=== PATIENT | male | born 1970 | race Caucasian/White ===

== ENCOUNTER 2017-04-27 01:30 | Inpatient (IN) | payer MEDICAID ==
[~2017-04-27] VITALS: Ht 172.7 cm; Wt 92.0 kg
[~2017-04-27 01:30] MED LIST: FAMO-18 PO
--- NOTE | 2017-04-27 03:34 | ERA ---
ER Documentation Chief Complaint Date/Time DATE: 04/27/17 TIME: 03:34 Chief Complaint AP x4 days. Antacids taken no relief HPI The patient is 46-year-old male, presenting to the ER because of diffuse abdominal pain intermittently for the last 4 days, constipation. he took over- the-counter antacids with no relief. He denies similar symptoms previously, denies fever, chills, neck pain, chest pain, dysuria, diarrhea, constipation. He does not smoke nor drink Past medical history: Hepatic steatosis ROS All systems reviewed and are negative except as per history of present illness. Medications Home Meds Reported Medications Ibuprofen* (Ibuprofen*) 200 Mg Capsule, 200 MG PO Q6, CAP 04/27/17 Magaldrate/Simethicone* (Mag-Al Plus Suspension*) 30 Ml Oral.susp, 30 ML PO Q6H Y for GASTROINTESTINAL UPSET, ML 04/27/17 Discontinued Scripts Famotidine* (Pepcid*) 20 Mg Tablet, 20 MG PO BID, #20 TAB Prov:JESSICA DUBOIS PA-C 04/21/16 Allergies Allergies: Coded Allergies: No Known Drug Allergy (Verified Allergy, Mild, 04/19/10) PMhx/Soc History of Surgery: No Anesthesia Reaction: No Hx Neurological Disorder: No Hx Respiratory Disorders: No Hx Cardiac Disorders: No Hx Psychiatric Problems: No Hx Miscellaneous Medical Probl: Yes Hx Alcohol Use: No Hx Substance Use: No Hx Tobacco Use: Yes (10 CIGARETTE DAILY) Physical Exam Vitals Vital Signs Date Time Temp Pulse Resp B/P Pulse Ox O2 Delivery O2 Flow Rate FiO2 04/27/17 03:39 98.0 76 17 137/71 98 Room Air 04/27/17 01:42 98.1 75 20 131/83 98 Physical Exam Const: No acute distress. Head: Atraumatic. Eyes: Normal Conjunctiva. ENT: Normal External Ears, Nose and Mouth. Neck: Full range of motion. No meningismus. Resp: Clear to auscultation bilaterally. Cardio: Regular rate and rhythm. Abd: Soft, non distended, normal bowel sounds, diffuse abdominal tenderness, more tender in the left upper quadrant, no CVA tenderness Skin: No petechiae or rashes. Back: No midline or flank tenderness. Ext: No cyanosis, or edema. Neur: Awake and alert. No focal deficit Psych: Normal Mood and Affect. Result Diagram: 04/27/17 0332 04/27/17 0332 Results 24 hrs Laboratory Tests Test 04/27/17 03:32 White Blood Count 8.310^3/ul Red Blood Count 5.0510^6/ul Hemoglobin 14.5g/dl Hematocrit 42.1% Mean Corpuscular Volume 83.4fl Mean Corpuscular Hemoglobin 28.7pg Mean Corpuscular Hemoglobin Concent 34.4g/dl Red Cell Distribution Width 13.5% Platelet Count 37572^3/UL Mean Platelet Volume 11.1fl Neutrophils % 60.8% Lymphocytes % 30.6% Monocytes % 5.8% Eosinophils % 2.1% Basophils % 0.5% Nucleated Red Blood Cells % 0.0/100WBC Neutrophils # 5.010^3/ul Lymphocytes # 2.510^3/ul Monocytes # 0.510^3/ul Eosinophils # 0.210^3/ul Basophils # 0.010^3/ul Nucleated Red Blood Cells # 0.010^3/ul Sodium Level 143mmol/L Potassium Level 3.9mmol/L Chloride Level 104mmol/L Carbon Dioxide Level 28mmol/L Anion Gap 15 Blood Urea Nitrogen 25mg/dl Creatinine 0.75mg/dl Glucose Level 109mg/dl Calcium Level 9.4mg/dl Total Bilirubin 0.4mg/dl Direct Bilirubin 0.00mg/dl Indirect Bilirubin 0.4mg/dl Aspartate Amino Transf (AST/SGOT) 27IU/L Alanine Aminotransferase (ALT/SGPT) 53IU/L Alkaline Phosphatase 102IU/L Total Protein 7.6g/dl Albumin 4.7g/dl Globulin 2.90g/dl Albumin/Globulin Ratio 1.62 Lipase 2459U/L Current Medications Medications (Trade) Dose Ordered Sig/Kourtney Route PRN Reason Start Time Stop Time Status Last Admin Dose Admin Ketorolac Tromethamine (Toradol) 30 mg ONCE STAT IV 04/27/17 03:48 04/27/17 03:50 DC 04/27/17 04:00 Bisacodyl (Dulcolax Supp) 10 mg ONCE ONCE NC 04/27/17 04:00 04/27/17 04:01 DC 04/27/17 04:00 [facility]/[address] [place] [address] Radiology Main Line: [phone] DIAGNOSTIC IMAGING REPORT Patient: ANNITA NINO : 1970 Age: 46 Sex: M MR #: [id number] DOS: 04/27/17 0348 Ordering MD: ALIZE JC MD Location: E/R Room/Bed: PROCEDURE: CT ABDOMEN/PELVIS WITHOUT CONTRAST CLINICAL INDICATION: 46-year-old male with abdominal pain. TECHNIQUE: The study was performed utilizing a [employer] 64-slice CT scanner. Direct axial sections were obtained through the abdomen and pelvis without the use of intravenous contrast material. Sagittal and coronal reformations were obtained. One or more of the following dose reduction techniques were utilized: automated exposure control, adjustment of the mA and/ or kV according to patient's size or use of iterative reconstruction technique. The images were reviewed on a PACS workstation. CTD/vol = 16.5 mGy; Total Exam DLP = 1160.1 mGy-cm. COMPARISON: Right upper quadrant ultrasound April 21, 2016. FINDINGS: The lung bases are unremarkable. There is no evidence for significant pleural effusion. The liver has a normal size and contour without focal areas of abnormal density. No intrahepatic nor extrahepatic biliary ductal dilatation is seen. The gallbladder demonstrates no wall thickening nor pericholecystic fluid. No biliary stones are evident. There is a small nonspecific punctate calcification within the distal body of the pancreas. The spleen is identified and has a normal size without abnormal density. The adrenal glands are unremarkable. The kidneys are without abnormal density. No hydroureteronephrosis nor nephroureterolithiasis is evident. The urinary bladder contains urine. There is mild retained stool identified throughout the colon without evidence for bowel obstruction. The appendix is visualized and is without abnormal thickening or surrounding inflammatory reaction. There is no significant free fluid. The aortoiliac vessels are mildly calcified but without aneurysmal dilatation. The osseous structures are intact. IMPRESSION: 1. No CT evidence for obstructive uropathy or renal calculi. 2. Mild retained stool without obstruction. 3. No CT evidence for appendicitis. 4. Vascular calcifications. .Frank William MD, MD Date Time Electronically viewed and signed by .Frank William MD, MD on 04/27/2017 04:54 .M/ CC: ALIZE JC MD [place] [address] Radiology Main Line: [phone] DIAGNOSTIC IMAGING REPORT Patient: ANNITA NINO : 1970 Age: 46 Sex: M MR #: [id number] DOS: 04/27/17 0440 Ordering MD: ALIZE JC MD Location: E/R Room/Bed: PROCEDURE: ULTRASOUND LIMITED ABDOMEN CLINICAL INDICATION: 46-year-old male with abdominal pain. TECHNIQUE: Multiple sonographic of the right upper quadrant of the abdomen were obtained. The images were reviewed on a PACS workstation. COMPARISON: CT abdomen/pelvis May 02, 2017. FINDINGS: The pancreas is not well visualized secondary to overlying bowel gas. The liver displays normal echogenicity. The liver measures 16.8 cm in length. No evidence of intrahepatic biliary ductal dilatation is seen. The portal and hepatic veins are unremarkable. The gallbladder is without evidence for shadowing stones or significant wall thickening. No pericholecystic fluid is seen. The common bile duct measures 4.5 mm and is not dilated. The right kidney displays normal echogenicity. The right kidney measures 11.5 cm in maximal length. No caliectasis or hydronephrosis is seen. No free fluid is seen. IMPRESSION: Unremarkable right upper quadrant abdominal ultrasound. .Frank William MD, MD Date Time Electronically viewed and signed by .Frank William MD, MD on 04/27/2017 05:09 .M/ CC: ALIZE JC MD EKG: Read by emergency physician Rate/Rhythm: Normal Sinus Rhythm 76 beats/min QRS, ST, T-waves: No ST elevation, no T inversion Impression: EKG MEDICAL MAKING DECISION: The patient is a 46-year-old male, presenting with acute pancreatitis. He was treated with Toradol 30 mg IV for pain, Dulcolax suppository for constipation with good response The differential diagnoses considered include but are not limited to cholelithiasis, cholecystitis, cystitis, pancreatitis, hepatitis, gastritis, peptic ulcer disease, gastric ulcer, appendicitis, diverticulitis, cholangitis, choledocholithiasis, partial small bowel obstruction. Departure Diagnosis: Primary Impression: Acute pancreatitis Condition: Stable Comments I discussed the findings with the patient. I discussed the patient with the on- call hospitalist Dr. Telles who was made aware of the lab, the treatment, the patient condition. The patient is admitted to [facility] at 5:10 AM The patient's blood pressure was elevated (>120/80) but appears stable without evidence of hypertension emergency or urgency. The patient was counseled about the risks of hypertension and urged to pursue outpatient monitoring and therapy within a week with their primary care physician. ALIZE JC MD Apr 27, 2017 03:34
[2017-04-27] MEDS ORDERED: UDMYL PO (03:40)
[2017-04-27] MEDS ORDERED: IBUP200C PO (03:41)
[2017-04-27] MEDS ORDERED: KETOROLAC 30 MG INJ IV STA (03:48)
[2017-04-27] MEDS ORDERED: BISACODYL 10 MG SUPP PR ONE (04:00)
[2017-04-27 04:11] LABS: ADD SCAN DIFF NO
[2017-04-27 04:13] LABS: BASOPHILS % 0.5 % (0.0-2.0); EOSINOPHILS # 0.2 10^3/ul (0.0-0.5); EOSINOPHILS % 2.1 % (0.0-7.0); HEMATOCRIT 42.1 % (42.0-52.0); HEMOGLOBIN 14.5 g/dl (14.0-18.0); LYMPHOCYTES # 2.5 10^3/ul (0.8-2.9); LYMPHOCYTES % 30.6 % (15.0-51.0); MEAN CORPUSCULAR HEMOGLOBIN 28.7 pg (29.0-33.0); MEAN CORPUSCULAR HGB CONC 34.4 g/dl (32.0-37.0); MEAN CORPUSCULAR VOLUME 83.4 fl (82.0-101.0); MEAN PLATELET VOLUME 11.1 fl (7.4-10.4); MONOCYTE # 0.5 10^3/ul (0.3-0.9); MONOCYTES % 5.8 % (0.0-11.0); NEUTROPHILS % 60.8 % (39.0-77.0); PLATELET COUNT 258 10^3/UL (140-415); RED BLOOD COUNT 5.05 10^6/ul (4.70-6.10); RED CELL DISTRIBUTION WIDTH 13.5 % (11.5-14.5); WHITE BLOOD COUNT 8.3 10^3/ul (4.8-10.8)
[2017-04-27 04:23] LABS: ALBUMIN 4.7 g/dl (3.3-4.9); ALBUMIN/GLOBULIN RATIO 1.62; BILIRUBIN,INDIRECT 0.4 mg/dl (0-1.1); BILIRUBIN,TOTAL 0.4 mg/dl (0.2-1.3); CALCIUM 9.4 mg/dl (8.4-10.2); CREATININE 0.75 mg/dl (0.61-1.24); POTASSIUM 3.9 mmol/L (3.5-5.1); TOTAL PROTEIN 7.6 g/dl (6.1-8.1)
--- NOTE | 2017-04-27 04:55 | RADRPT ---
PROCEDURE: CT ABDOMEN/PELVIS WITHOUT CONTRAST CLINICAL INDICATION: 46-year-old male with abdominal pain. TECHNIQUE: The study was performed utilizing a [employer] VCT 64-slice CT scanner. Direct axia l sections were obtained through the abdomen and pelvis without the use of intravenous contrast mate rial. Sagittal and coronal reformations were obtained. One or more of the following dose reduction t echniques were utilized: automated exposure control, adjustment of the mA and/or kV according to pat ient's size or use of iterative reconstruction technique. The images were reviewed on a [employer]ACS workst [employer]. CTD/vol = 16.5 mGy; Total Exam DLP = 1160.1 mGy-cm. COMPARISON: Right upper quadrant ultrasound April 21, 2016. FINDINGS: The lung bases are unremarkable. There is no evidence for significant pleural effusion. The liver has a normal size and contour without focal areas of abnormal density. No intrahepatic nor extrahepa tic biliary ductal dilatation is seen. The gallbladder demonstrates no wall thickening nor perichole cystic fluid. No biliary stones are evident. There is a small nonspecific punctate calcification wit hin the distal body of the pancreas. The spleen is identified and has a normal size without abnormal density. The adrenal glands are unremarkable. The kidneys are without abnormal density. No hydroure teronephrosis nor nephroureterolithiasis is evident. The urinary bladder contains urine. There is mi ld retained stool identified throughout the colon without evidence for bowel obstruction. The appen tomy is visualized and is without abnormal thickening or surrounding inflammatory reaction. There is no significant free fluid. The aortoiliac vessels are mildly calcified but without aneurysmal dilatation. The osseous structures are intact. IMPRESSION: 1. No CT evidence for obstructive uropathy or renal calculi. 2. Mild retained stool without obstruction. 3. No CT evidence for appendicitis. 4. Vascular calcifications. .Frank William MD, MD Date Time Electronically viewed and signed by .Frank William MD, on 04/27/2017 04:54 .[place]/
--- NOTE | 2017-04-27 05:09 | RADRPT ---
PROCEDURE: ULTRASOUND LIMITED ABDOMEN CLINICAL INDICATION: 46-year-old male with abdominal pain. TECHNIQUE: Multiple sonographic of the right upper quadrant of the abdomen were obtained. The imag es were reviewed on a PACS workstation. COMPARISON: CT abdomen/pelvis May 02, 2017. FINDINGS: The pancreas is not well visualized secondary to overlying bowel gas. The liver displays normal echogenicity. The liver measures 16.8 cm in length. No evidence of intrah epatic biliary ductal dilatation is seen. The portal and hepatic veins are unremarkable. The gallbladder is without evidence for shadowing stones or significant wall thickening. No perichol ecystic fluid is seen. The common bile duct measures 4.5 mm and is not dilated. The right kidney displays normal echogenicity. The right kidney measures 11.5 cm in maximal length. No caliectasis or hydronephrosis is seen. No free fluid is seen. IMPRESSION: Unremarkable right upper quadrant abdominal ultrasound. .Frank William MD, MD Date Time Electronically viewed and signed by .Frank William MD, on 04/27/2017 05:09 .[place]/
[2017-04-27] MEDS: D5W-0.45 NACL + KCL 20 MEQ 1,000 ML IV SCH ×3 (07:12→22:03)
[2017-04-27] MEDS ORDERED: NACL 0.9% 3 ML SYG IV SCH (07:30)
[2017-04-27] MEDS ORDERED: ONDANSETRON 4 MG INJ IV PRN (07:30)
--- NOTE | 2017-04-27 07:54 | HP ---
DATE OF ADMISSION: 04/27/2017 TIME: 6:45 a.m. CHIEF COMPLAINT: Abdominal pain. HISTORY OF PRESENT ILLNESS: The patient is a 46-year-old male with no medical history. He states f or the past several days now he has been having worsening abdominal pain associated with nausea, dif ficulty eating. He states that when he eats the pain gets worse. In the ED the patient was noted to have a lipase of 2,459. He states that he has never had pancreatitis before. He denies any alcohol abuse. He states that he has not drank for many years now. The patient has no other complaints at this time. PAST MEDICAL HISTORY: Denies. PAST SURGICAL HISTORY: Denies. HOME MEDICATIONS: None. ALLERGIES: NO KNOWN DRUG ALLERGIES. FAMILY HISTORY: Denies. SOCIAL HISTORY: Denies any alcohol, tobacco, or drug abuse. REVIEW OF SYSTEMS: A 12-point review of systems was negative except for that stated in the HPI. PHYSICAL EXAMINATION: VITAL SIGNS: Temperature 98.0, pulse 76, respiratory rate 17, BP is 137/71, saturations 98% on room air. GENERAL: In no acute distress, alert and oriented. HEENT: Normocephalic, atraumatic. CHEST: Clear to auscultation. CARDIOVASCULAR: Regular rate and rhythm. ABDOMEN: Nondistended, soft. Mild tenderness to palpation. EXTREMITIES: No clubbing, cyanosis, or edema. LABORATORIES: CBC within normal limits. BNP is within normal limits except for a BUN of 25 and lip ase was also elevated at 2,459. DIAGNOSTICS: Gallbladder ultrasound was unremarkable. A right upper quadrant abdominal ultrasound a nd abdominal pelvis CT shows no CT evidence for obstructive uropathy or renal calculi. Mild retaine d stool. No evidence of appendicitis. ASSESSMENT AND PLAN: 1. Pancreatitis. Etiology is unknown at this time. The patient is not on any medications, does no t abuse any alcohol. Ultrasound of his abdomen shows gallstones. Will check a triglyceride level. Will keep the patient n.p.o. and give IV fluids. 2. Prophylaxis. SCDs. Dictated By: BETSYE SALES MD BS/NTS Conf#: [id number] DID#: [id number]
--- NOTE | 2017-04-27 16:06 | PN ---
Date/Time of Note Date/Time of Note DATE: 04/27/17 TIME: 16:05 Assessment/Plan VTE Prophylaxis VTE Prophylaxis Intervention: SCD's Assessment/Plan Chief Complaint/Hosp Course Assessment and plan 1. Pancreatitis. Etiology unknown at this time. Follow-up on the blood panel. Less abdominal pain at this time. Follow-up on likely stable. Advance diet as tolerated. Continue on IV hydration. Provide with analgesics as needed. DVT prophylaxis: SCDs Disposition plan: We will advance that as tolerated. Anticipate discharge within the next 24 hours if medically stable Discussed plan of care with Dr. Turner Problems: Subjective 24 Hr Interval Summary Free Text/Dictation Reports his abdominal pain at this time. 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, nl mental status, nl speech Results Result Diagram: 04/27/17 0332 04/27/17 0332 Results 24 hrs Laboratory Tests Test 04/27/17 03:32 White Blood Count 8.3 Red Blood Count 5.05 Hemoglobin 14.5 Hematocrit 42.1 Mean Corpuscular Volume 83.4 Mean Corpuscular Hemoglobin 28.7 L Mean Corpuscular Hemoglobin Concent 34.4 Red Cell Distribution Width 13.5 Platelet Count 258 Mean Platelet Volume 11.1 #H Neutrophils % 60.8 Lymphocytes % 30.6 Monocytes % 5.8 Eosinophils % 2.1 Basophils % 0.5 Nucleated Red Blood Cells % 0.0 Neutrophils # 5.0 Lymphocytes # 2.5 Monocytes # 0.5 Eosinophils # 0.2 Basophils # 0.0 Nucleated Red Blood Cells # 0.0 Sodium Level 143 Potassium Level 3.9 Chloride Level 104 Carbon Dioxide Level 28 Anion Gap 15 Blood Urea Nitrogen 25 H Creatinine 0.75 Glucose Level 109 Calcium Level 9.4 Total Bilirubin 0.4 Direct Bilirubin 0.00 Indirect Bilirubin 0.4 Aspartate Amino Transf (AST/SGOT) 27 Alanine Aminotransferase (ALT/SGPT) 53 Alkaline Phosphatase 102 Total Protein 7.6 Albumin 4.7 Globulin 2.90 Albumin/Globulin Ratio 1.62 Lipase 2459 H Medications Medications Current Medications Potassium Chloride/Dextrose/ Sod Cl (D5-1/2ns + KCl 20 Meq) 1,000 ml @ 100 mls/ hr Q10H IV Last administered on 04/27/17 07:12; Admin Dose 100 MLS/HR; Start 04/27/17 at 07:12 Ondansetron HCl (Zofran Inj) 4 mg Q6H PRN IV NAUSEA AND/OR VOMITING; Start at 07:30 Acetaminophen (Tylenol Tab) 650 mg Q6H PRN PO PAIN LEVEL 1-3 OR FEVER; Start at 07:30 Acetaminophen/ Hydrocodone Bitart ([place] (5/325)) 1 tab Q6H PRN PO MODERATE PAIN LEVEL 4-6; Start 04/27/17 at 07:30 Morphine Sulfate (morphine) 2 mg Q4H PRN IV SEVERE PAIN LEVEL 7-10; Start 04/27 at 07:30 JOSE J CARRERA Apr 27, 2017 16:06
[2017-04-27 16:31] VITALS: TEMP 97.5
[2017-04-27] MEDS: morphine 2 MG INJ IV PRN (16:41)
[2017-04-27 19:01] VITALS: Ht 172.7 cm; Wt 92.0 kg
[2017-04-27] MEDS: ACETAMINOPHEN 325 MG TAB PO PRN (19:45)
[2017-04-27 20:23] VITALS: BP 115/77; RESP 16
[2017-04-28 05:36] LABS: ADD SCAN DIFF NO
[2017-04-28 05:47] LABS: BASOPHILS % 0.5 % (0.0-2.0); EOSINOPHILS # 0.2 10^3/ul (0.0-0.5); EOSINOPHILS % 2.5 % (0.0-7.0); HEMATOCRIT 40.7 % (42.0-52.0); HEMOGLOBIN 13.8 g/dl (14.0-18.0); LYMPHOCYTES % 26.4 % (15.0-51.0); MEAN CORPUSCULAR HEMOGLOBIN 28.5 pg (29.0-33.0); MEAN CORPUSCULAR HGB CONC 33.9 g/dl (32.0-37.0); MEAN CORPUSCULAR VOLUME 83.9 fl (82.0-101.0); MEAN PLATELET VOLUME 10.9 fl (7.4-10.4); MONOCYTE # 0.5 10^3/ul (0.3-0.9); MONOCYTES % 6.5 % (0.0-11.0); NEUTROPHIL # 4.9 10^3/ul (1.6-7.5); NEUTROPHILS % 63.8 % (39.0-77.0); PLATELET COUNT 262 10^3/UL (140-415); RED BLOOD COUNT 4.85 10^6/ul (4.70-6.10); RED CELL DISTRIBUTION WIDTH 13.5 % (11.5-14.5); WHITE BLOOD COUNT 7.7 10^3/ul (4.8-10.8)
[2017-04-28 06:04] LABS: ALBUMIN 4.3 g/dl (3.3-4.9); ALBUMIN/GLOBULIN RATIO 1.43; BILIRUBIN,INDIRECT 0.4 mg/dl (0-1.1); BILIRUBIN,TOTAL 0.4 mg/dl (0.2-1.3); CALCIUM 9.3 mg/dl (8.4-10.2); CHOL/HDL RATIO 7.9 RATIO; CREATININE 0.76 mg/dl (0.61-1.24); MAGNESIUM 1.8 mg/dl (1.7-2.5); PHOSPHORUS 3.9 mg/dl (2.5-4.9); POTASSIUM 4.1 mmol/L (3.5-5.1); TOTAL PROTEIN 7.3 g/dl (6.1-8.1)
[2017-04-28 06:19] LABS: T3 UPTAKE 36.9 % (23.5-40.5)
[2017-04-28] MEDS: D5W-0.45 NACL + KCL 20 MEQ 1,000 ML IV SCH ×3 (08:24→19:50)
[2017-04-28 09:12] VITALS: BP 128/77; RESP 18
[2017-04-28] MEDS: HYDROCODONE/APAP (5/325) TAB PO PRN ×2 (09:34→21:55)
[2017-04-28] MEDS: ACETAMINOPHEN 325 MG TAB PO PRN (15:16)
--- NOTE | 2017-04-28 17:12 | PN ---
Date/Time of Note Date/Time of Note DATE: 04/28/17 TIME: 17:11 Assessment/Plan VTE Prophylaxis VTE Prophylaxis Intervention: SCD's Lines/Catheters IV Catheter Type (from Nrsg): Peripheral IV Assessment/Plan Chief Complaint/Hosp Course Assessment and plan 1. Pancreatitis. still with elevated lipase. cont with analgesics. follow up with level DVT prophylaxis: SCDs Disposition plan: f/u lipase level. still elevated. cont with analgesics Discussed plan of care with Dr. Turner Problems: Subjective 24 Hr Interval Summary Free Text/Dictation no s/s of distress Exam/Review of Systems Vital Signs Vitals Vital Signs Date Time Temp Pulse Resp B/P Pulse Ox O2 Delivery O2 Flow Rate FiO2 04/28/17 09:12 98.4 62 18 128/77 98 04/27/17 18:16 Room Air Intake and Output 04/27/17 04/27/17 04/28/17 15:00 23:00 07:00 Intake Total 500 ml 1550 ml Balance 500 ml 1550 ml Exam Constitutional: alert, oriented Psych: no complaints Head: normocephalic Respiratory: clear to auscultation, normal air movement Cardiovascular: regular rate and rhythm Gastrointestinal: non-tender, soft Musculoskeletal: nl extremities to inspection Extremities: normal pulses 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2 Basophils # 0.0 Nucleated Red Blood Cells # 0.0 Sodium Level 143 Potassium Level 4.1 Chloride Level 107 Carbon Dioxide Level 24 Anion Gap 16 Blood Urea Nitrogen 13 # Creatinine 0.76 Glucose Level 119 Hemoglobin A1c 6.4 H Calcium Level 9.3 Phosphorus Level 3.9 Magnesium Level 1.8 Total Bilirubin 0.4 Direct Bilirubin 0.00 Indirect Bilirubin 0.4 Aspartate Amino Transf (AST/SGOT) 32 Alanine Aminotransferase (ALT/SGPT) 41 Alkaline Phosphatase 98 Total Protein 7.3 Albumin 4.3 Globulin 3.00 Albumin/Globulin Ratio 1.43 Triglycerides Level 178 H Cholesterol Level 174 LDL Cholesterol, Calculated 116 HDL Cholesterol 22 L Cholesterol/HDL Ratio 7.9 Lipase 1684 H Free Thyroxine Index 2.66 Thyroxine (T4) 7.2 Triiodothyronine (T3) Uptake 36.9 Medications Medications Current Medications Potassium Chloride/Dextrose/ Sod Cl (D5-1/2ns + KCl 20 Meq) 1,000 ml @ 100 mls/ hr Q10H IV Last administered on 04/28/17 08:24; Admin Dose 100 MLS/HR; Start 04/27/17 at 07:12 Ondansetron HCl (Zofran Inj) 4 mg Q6H PRN IV NAUSEA AND/OR VOMITING; Start at 07:30 Acetaminophen (Tylenol Tab) 650 mg Q6H PRN PO PAIN LEVEL 1-3 OR FEVER Last administered on 04/28/17 15:16; Admin Dose 650 MG; Start 04/27/17 at 07:30 Acetaminophen/ Hydrocodone Bitart ([place] (5/325)) 1 tab Q6H PRN PO MODERATE PAIN LEVEL 4-6 Last administered on 04/28/17 09:34; Admin Dose 1 TAB; Start at 07:30 Morphine Sulfate (morphine) 2 mg Q4H PRN IV SEVERE PAIN LEVEL 7-10 Last administered on 04/27/17 16:41; Admin Dose 2 MG; Start 04/27/17 at 07:30 JOSE J CARRERA Apr 28, 2017 17:12
[2017-04-28 21:33] VITALS: BP 125/76; RESP 18
[2017-04-29] MEDS: D5W-0.45 NACL + KCL 20 MEQ 1,000 ML IV SCH ×2 (05:47→16:49)
[2017-04-29 06:07] LABS: ADD SCAN DIFF NO
[2017-04-29 06:11] LABS: BASOPHILS % 0.5 % (0.0-2.0); EOSINOPHILS # 0.2 10^3/ul (0.0-0.5); HEMOGLOBIN 14.3 g/dl (14.0-18.0); LYMPHOCYTES # 2.3 10^3/ul (0.8-2.9); LYMPHOCYTES % 35.7 % (15.0-51.0); MEAN CORPUSCULAR HGB CONC 33.3 g/dl (32.0-37.0); MEAN CORPUSCULAR VOLUME 84.3 fl (82.0-101.0); MEAN PLATELET VOLUME 10.9 fl (7.4-10.4); MONOCYTE # 0.4 10^3/ul (0.3-0.9); MONOCYTES % 6.2 % (0.0-11.0); NEUTROPHIL # 3.5 10^3/ul (1.6-7.5); NEUTROPHILS % 54.3 % (39.0-77.0); PLATELET COUNT 240 10^3/UL (140-415); RED CELL DISTRIBUTION WIDTH 13.8 % (11.5-14.5); WHITE BLOOD COUNT 6.4 10^3/ul (4.8-10.8)
[2017-04-29 06:45] LABS: CALCIUM 9.3 mg/dl (8.4-10.2); CREATININE 0.75 mg/dl (0.61-1.24); POTASSIUM 4.5 mmol/L (3.5-5.1)
--- NOTE | 2017-04-29 08:47 | PN ---
Date/Time of Note Date/Time of Note DATE: 04/29/17 TIME: 08:46 Assessment/Plan VTE Prophylaxis VTE Prophylaxis Intervention: contraindicated Lines/Catheters IV [facility] (from [facility]): Peripheral IV Assessment/Plan Problems: (1) Acute pancreatitis Status: Acute Comment: There is no clear-cut inciting event for this gentleman is pancreatitis. He was not on any of the medications traditionally associated with this; had normal triglycerides; he does not drink; and his biliary evaluation demonstrated no evidence of stones on either ultrasound or CT scan. Regardless he is improving elevate an extremely slow pace. He has been pain- free now for roughly 12-14 hours. I will observe him for 1 more day and recheck his labs in the morning. If he continues to improve he will be discharged home. Qualifiers: Pancreatitis type: idiopathic Acute pancreatitis complication: no infection or necrosis Qualified Code: K85.00 - Idiopathic acute pancreatitis without infection or necrosis Subjective 24 Hr Interval Summary Free Text/Dictation Pleasant gentleman eating breakfast. Constitutional: no complaints Respiratory: no complaints Cardiovascular: no complaints Genitourinary: no complaints Exam/Review of Systems Vital Signs Vitals Vital Signs Date Time Temp Pulse Resp B/P Pulse Ox O2 Delivery O2 Flow Rate FiO2 04/28/17 21:33 97.6 63 18 125/76 97 04/27/17 18:16 Room Air Intake and Output 04/28/17 04/28/17 04/29/17 15:00 23:00 07:00 Intake Total 1000 ml 1240 ml Balance 1000 ml 1240 ml Exam Constitutional: alert, oriented Neck: non-tender, supple Respiratory: clear to auscultation, normal air movement Cardiovascular: nl pulses, regular rate and rhythm Gastrointestinal: nl liver, spleen, soft Results Result Diagram: 04/29/17 0521 04/29/17 0521 Results 24 hrs Laboratory Tests Test 04/29/17 05:21 White Blood Count 6.4 Red Blood Count 5.10 Hemoglobin 14.3 Hematocrit 43.0 Mean Corpuscular Volume 84.3 Mean Corpuscular Hemoglobin 28.0 L Mean Corpuscular Hemoglobin Concent 33.3 Red Cell Distribution Width 13.8 Platelet Count 240 Mean Platelet Volume 10.9 H Neutrophils % 54.3 Lymphocytes % 35.7 Monocytes % 6.2 Eosinophils % 3.0 Basophils % 0.5 Nucleated Red Blood Cells % 0.0 Neutrophils # 3.5 Lymphocytes # 2.3 Monocytes # 0.4 Eosinophils # 0.2 Basophils # 0.0 Nucleated Red Blood Cells # 0.0 Sodium Level 139 Potassium Level 4.5 Chloride Level 107 Carbon Dioxide Level 25 Anion Gap 12 Blood Urea Nitrogen 11 Creatinine 0.75 Glucose Level 113 Calcium Level 9.3 Lipase 1456 H Medications Medications Current Medications Potassium Chloride/Dextrose/ Sod Cl (D5-1/2ns + KCl 20 Meq) 1,000 ml @ 100 mls/ hr Q10H IV Last administered on 04/29/17 05:47; Admin Dose 100 MLS/HR; Start 04/27/17 at 07:12 Ondansetron HCl (Zofran Inj) 4 mg Q6H PRN IV NAUSEA AND/OR VOMITING; Start at 07:30 Acetaminophen (Tylenol Tab) 650 mg Q6H PRN PO PAIN LEVEL 1-3 OR FEVER Last administered on 04/28/17 15:16; Admin Dose 650 MG; Start 04/27/17 at 07:30 Acetaminophen/ Hydrocodone Bitart ([place] (5/325)) 1 tab Q6H PRN PO MODERATE PAIN LEVEL 4-6 Last administered on 04/28/17 21:55; Admin Dose 1 TAB; Start at 07:30 Morphine Sulfate (morphine) 2 mg Q4H PRN IV SEVERE PAIN LEVEL 7-10 Last administered on 04/27/17 16:41; Admin Dose 2 MG; Start 04/27/17 at 07:30 BUCK TERRELL MD Apr 29, 2017 08:47
[2017-04-29 09:06] VITALS: BP 111/68; RESP 18
[2017-04-29] MEDS ORDERED: ZOLPIDEM 5 MG TAB PO PRN (20:30)
[2017-04-29 20:46] VITALS: BP 115/76; RESP 18
[2017-04-29] MEDS: HYDROCODONE/APAP (5/325) TAB PO PRN (23:58)
[2017-04-30] MEDS: D5W-0.45 NACL + KCL 20 MEQ 1,000 ML IV SCH ×3 (02:42→23:16)
[2017-04-30 05:43] LABS: ADD SCAN DIFF NO
[2017-04-30 05:51] LABS: BASOPHIL # 0.1 10^3/ul (0.0-0.1); BASOPHILS % 0.7 % (0.0-2.0); EOSINOPHILS # 0.2 10^3/ul (0.0-0.5); EOSINOPHILS % 2.7 % (0.0-7.0); HEMATOCRIT 43.5 % (42.0-52.0); HEMOGLOBIN 14.4 g/dl (14.0-18.0); LYMPHOCYTES # 2.7 10^3/ul (0.8-2.9); LYMPHOCYTES % 38.6 % (15.0-51.0); MEAN CORPUSCULAR HGB CONC 33.1 g/dl (32.0-37.0); MEAN CORPUSCULAR VOLUME 84.5 fl (82.0-101.0); MEAN PLATELET VOLUME 11.1 fl (7.4-10.4); MONOCYTE # 0.5 10^3/ul (0.3-0.9); MONOCYTES % 6.6 % (0.0-11.0); NEUTROPHIL # 3.5 10^3/ul (1.6-7.5); NEUTROPHILS % 51.3 % (39.0-77.0); PLATELET COUNT 256 10^3/UL (140-415); RED BLOOD COUNT 5.15 10^6/ul (4.70-6.10); RED CELL DISTRIBUTION WIDTH 13.4 % (11.5-14.5); WHITE BLOOD COUNT 6.9 10^3/ul (4.8-10.8)
[2017-04-30 06:22] LABS: AMYLASE 156 U/L (11-123)
[2017-04-30 06:38] LABS: CALCIUM 9.1 mg/dl (8.4-10.2); CREATININE 0.9 mg/dl (0.61-1.24); POTASSIUM 4.1 mmol/L (3.5-5.1)
[2017-04-30 08:01] VITALS: BP 128/81; RESP 18
--- NOTE | 2017-04-30 09:55 | PN ---
Date/Time of Note Date/Time of Note DATE: 04/30/17 TIME: 09:54 Assessment/Plan VTE Prophylaxis VTE Prophylaxis Intervention: heparin Lines/Catheters IV Catheter Type (from [facility]): Peripheral IV Assessment/Plan Problems: (1) Acute pancreatitis Status: Acute Comment: The speed with which is enzymes have decreased has not been in accordance with what is routine. After careful review I believe that this gentleman has gallbladder sludge and is having gallstone pancreatitis. This is not remitting. As such she will need intervention. I have consulted Dr. Ferny Spaulding who will see the patient in the morning most likely perform laparoscopic cholecystectomy on May 02, 2017. The patient is medically clear for surgical intervention Qualifiers: Pancreatitis type: idiopathic Acute pancreatitis complication: no infection or necrosis Qualified Code: K85.00 - Idiopathic acute pancreatitis without infection or necrosis Subjective 24 Hr Interval Summary Free Text/Dictation Patient reports symptomatology is improved. Please note he is very stoic Constitutional: no complaints Respiratory: no complaints Cardiovascular: no complaints Gastrointestinal: no complaints (Please note he has been taking pain medications even though he does not have any complaints) Exam/Review of Systems Vital Signs Vitals Vital Signs Date Time Temp Pulse Resp B/P Pulse Ox O2 Delivery O2 Flow Rate FiO2 04/30/17 08:01 98.3 65 18 128/81 96 04/27/17 18:16 Room Air Intake and Output 04/29/17 04/29/17 04/30/17 15:00 23:00 07:00 Intake Total 1900 ml 1700 ml Balance 1900 ml 1700 ml Exam Constitutional: alert, oriented Respiratory: clear to auscultation, normal air movement Cardiovascular: nl pulses, regular rate and rhythm Gastrointestinal: nl liver, spleen, non-tender, soft Results Result Diagram: 04/30/17 0440 04/30/17 0440 Results 24 hrs Laboratory Tests Test 04/30/17 04:40 White Blood Count 6.9 Red Blood Count 5.15 Hemoglobin 14.4 Hematocrit 43.5 Mean Corpuscular Volume 84.5 Mean Corpuscular Hemoglobin 28.0 L Mean Corpuscular Hemoglobin Concent 33.1 Red Cell Distribution Width 13.4 Platelet Count 256 Mean Platelet Volume 11.1 H Neutrophils % 51.3 Lymphocytes % 38.6 Monocytes % 6.6 Eosinophils % 2.7 Basophils % 0.7 Nucleated Red Blood Cells % 0.0 Neutrophils # 3.5 Lymphocytes # 2.7 Monocytes # 0.5 Eosinophils # 0.2 Basophils # 0.1 Nucleated Red Blood Cells # 0.0 Sodium Level 139 Potassium Level 4.1 Chloride Level 103 Carbon Dioxide Level 27 Anion Gap 13 Blood Urea Nitrogen 12 Creatinine 0.90 Glucose Level 115 Calcium Level 9.1 Amylase Level 156 H Lipase 1660 H Medications Medications Current Medications Potassium Chloride/Dextrose/ Sod Cl (D5-1/2ns + KCl 20 Meq) 1,000 ml @ 100 mls/ hr Q10H IV Last administered on 04/30/17 02:42; Admin Dose 100 MLS/HR; Start 04/27/17 at 07:12 Ondansetron HCl (Zofran Inj) 4 mg Q6H PRN IV NAUSEA AND/OR VOMITING; Start at 07:30 Acetaminophen (Tylenol Tab) 650 mg Q6H PRN PO PAIN LEVEL 1-3 OR FEVER Last administered on 04/28/17 15:16; Admin Dose 650 MG; Start 04/27/17 at 07:30 Acetaminophen/ Hydrocodone Bitart ([place] (5/325)) 1 tab Q6H PRN PO MODERATE PAIN LEVEL 4-6 Last administered on 04/29/17 23:58; Admin Dose 1 TAB; Start at 07:30 Morphine Sulfate (morphine) 2 mg Q4H PRN IV SEVERE PAIN LEVEL 7-10 Last administered on 04/27/17 16:41; Admin Dose 2 MG; Start 04/27/17 at 07:30 Simethicone (Mylicon) 80 mg Q2H PRN PO DISTENSION/GAS/BLOATING Last administered on 04/29/17 21:35; Admin Dose 80 MG; Start 04/29/17 at 13:30 BUCK TERRELL MD Apr 30, 2017 09:55
[2017-04-30 20:02] VITALS: BP 122/94; RESP 18
[2017-04-30] MEDS: HYDROCODONE/APAP (5/325) TAB PO PRN (20:45)
[2017-05-01] MEDS: morphine 2 MG INJ IV PRN (02:21)
[2017-05-01 05:18] LABS: ADD SCAN DIFF NO
[2017-05-01 05:33] LABS: BASOPHILS % 0.6 % (0.0-2.0); EOSINOPHILS # 0.2 10^3/ul (0.0-0.5); EOSINOPHILS % 3.4 % (0.0-7.0); HEMATOCRIT 43.1 % (42.0-52.0); HEMOGLOBIN 14.6 g/dl (14.0-18.0); LYMPHOCYTES # 2.3 10^3/ul (0.8-2.9); LYMPHOCYTES % 35.3 % (15.0-51.0); MEAN CORPUSCULAR HEMOGLOBIN 28.3 pg (29.0-33.0); MEAN CORPUSCULAR HGB CONC 33.9 g/dl (32.0-37.0); MEAN CORPUSCULAR VOLUME 83.5 fl (82.0-101.0); MEAN PLATELET VOLUME 10.7 fl (7.4-10.4); MONOCYTE # 0.4 10^3/ul (0.3-0.9); MONOCYTES % 6.3 % (0.0-11.0); NEUTROPHIL # 3.6 10^3/ul (1.6-7.5); NEUTROPHILS % 54.2 % (39.0-77.0); PLATELET COUNT 250 10^3/UL (140-415); RED BLOOD COUNT 5.16 10^6/ul (4.70-6.10); RED CELL DISTRIBUTION WIDTH 13.6 % (11.5-14.5); WHITE BLOOD COUNT 6.5 10^3/ul (4.8-10.8)
[2017-05-01 05:35] LABS: INR 0.99; PROTIME 13.1 Sec (12.2-14.2)
[2017-05-01 05:36] LABS: PARTIAL THROMBOPLASTIN TIME 26.8 Sec (25.0-35.0)
[2017-05-01 05:47] LABS: CALCIUM 9.2 mg/dl (8.4-10.2); CREATININE 0.8 mg/dl (0.61-1.24); POTASSIUM 4.6 mmol/L (3.5-5.1)
[2017-05-01] MEDS: D5W-0.45 NACL + KCL 20 MEQ 1,000 ML IV SCH (09:37)
[2017-05-01 09:47] VITALS: BP 123/84; PULSE 67; RESP 18
--- NOTE | 2017-05-01 12:04 | PN ---
Date/Time of Note Date/Time of Note DATE: 05/01/17 TIME: 12:03 Assessment/Plan VTE Prophylaxis VTE Prophylaxis Intervention: SCD's Lines/Catheters IV Catheter Type (from Nrsg): Peripheral IV Assessment/Plan Assessment/Plan 46 yo M presented with abd pain found to have elevated lipase concerning for pancreatitis. Given delay in resolution of elevated lipase, concern for biliary pathology. PLAN: gen surg to see today for biliary eval cont diet cont DVT prophx Subjective 24 Hr Interval Summary Free Text/Dictation No complaints. Gen surg to see today Exam/Review of Systems Vital Signs Vitals Vital Signs Date Time Temp Pulse Resp B/P Pulse Ox O2 Delivery O2 Flow Rate FiO2 05/01/17 09:47 97.9 67 18 123/84 97 Room Air Intake and Output 04/30/17 04/30/17 05/01/17 15:00 23:00 07:00 Intake Total 650 ml 1350 ml 1650 ml Balance 650 ml 1350 ml 1650 ml Exam nad sitting at side of bed no mrg lungs clear abd soft no rashes Results Result Diagram: 05/01/17 0500 05/01/17 0500 Results 24 hrs Laboratory Tests Test 05/01/17 05:00 White Blood Count 6.5 Red Blood Count 5.16 Hemoglobin 14.6 Hematocrit 43.1 Mean Corpuscular Volume 83.5 Mean Corpuscular Hemoglobin 28.3 L Mean Corpuscular Hemoglobin Concent 33.9 Red Cell Distribution Width 13.6 Platelet Count 250 Mean Platelet Volume 10.7 H Neutrophils % 54.2 Lymphocytes % 35.3 Monocytes % 6.3 Eosinophils % 3.4 Basophils % 0.6 Nucleated Red Blood Cells % 0.0 Neutrophils # 3.6 Lymphocytes # 2.3 Monocytes # 0.4 Eosinophils # 0.2 Basophils # 0.0 Nucleated Red Blood Cells # 0.0 Prothrombin Time 13.1 Prothrombin Time Ratio 1.0 INR International Normalized Ratio 0.99 Activated Partial Thromboplast Time 26.8 Sodium Level 138 Potassium Level 4.6 Chloride Level 104 Carbon Dioxide Level 26 Anion Gap 13 Blood Urea Nitrogen 13 Creatinine 0.80 Glucose Level 122 Calcium Level 9.2 Amylase Level 130 H Lipase 1475 H Medications Medications Current Medications Potassium Chloride/Dextrose/ Sod Cl (D5-1/2ns + KCl 20 Meq) 1,000 ml @ 100 mls/ hr Q10H IV Last administered on 05/01/17 09:37; Admin Dose 100 MLS/HR; Start 04/27/17 at 07:12 Ondansetron HCl (Zofran Inj) 4 mg Q6H PRN IV NAUSEA AND/OR VOMITING; Start at 07:30 Acetaminophen (Tylenol Tab) 650 mg Q6H PRN PO PAIN LEVEL 1-3 OR FEVER Last administered on 04/28/17 15:16; Admin Dose 650 MG; Start 04/27/17 at 07:30 Acetaminophen/ Hydrocodone Bitart ([place] (5/325)) 1 tab Q6H PRN PO MODERATE PAIN LEVEL 4-6 Last administered on 04/30/17 20:45; Admin Dose 1 TAB; Start at 07:30 Morphine Sulfate (morphine) 2 mg Q4H PRN IV SEVERE PAIN LEVEL 7-10 Last administered on 05/01/17 02:21; Admin Dose 2 MG; Start 04/27/17 at 07:30 Simethicone (Mylicon) 80 mg Q2H PRN PO DISTENSION/GAS/BLOATING Last administered on 04/29/17 21:35; Admin Dose 80 MG; Start 04/29/17 at 13:30 OMEGA JACOBO MD May 01, 2017 12:04
--- NOTE | 2017-05-01 15:58 | CONS ---
[facility] INITIAL INPATIENT CONSULTATION NOTE DATE OF CONSULTATION: 05/01/2017 PLACE OF SERVICE: [facility], second floor [place] on . IMPRESSION AND PLAN: A very pleasant 46-year-old gentleman with comorbidity of BMI of 30.8, presenting with what appears to be acute pancreatitis, which could be due to sludge disease in the gallbladder. Interestingly, the patient also reported having issues with dairy products and certain foods with right upper quadrant pain and for this reason, he had been avoiding those foods. This could certainly also be from gallbladder disease. I do believe that the patient can benefit from a laparoscopic cholecystectomy in order to decrease the chances of him having a repeat episode of pancreatitis in the next 6 months from 30% down to the normal range, which is near 0. I reviewed the rationale behind my recommendation with the patient with the help of diagrams and reviewed the operation in detail including the risks, benefits and alternatives in detail. I answered all the patient's questions to the best of my ability. After careful consideration of all his options, including the risks, benefits and alternatives, the patient appeared to understand and agree with the procedure. With above assessment, I recommended the followin. Continue current care. 2. N.p.o. after midnight. 3. Possible laparoscopic versus open cholecystectomy tomorrow afternoon pending patient's clinical condition and his laboratory values. Thank you again for allowing us to participate in the care of this very pleasant gentleman and his wonderful family. If there are any questions, please feel free to contact me at [phone]. UPDATED CLINICAL SUMMARY: A very pleasant 46-year-old gentleman with comorbidity a BMI of 30.8, admitted through the emergency department to [facility] on 04/27/2017 with pancreatitis. COMORBIDITIES: 1. BMI 30.8. 2. Vascular calcifications. DATE OF ADMISSION: 04/27/2017 HISTORY OF PRESENT ILLNESS: The patient is a very pleasant 46-year-old otherwise seemingly healthy gentleman with comorbidity of BMI of 30.8, admitted through the emergency department at [facility] on 04/27/2017 with signs and symptoms of____. His admission lipase levels were 2459. With appropriate treatment, those numbers improved, although the lipase had increased to 1660 on 04/30/2017. A right upper quadrant ultrasound had been performed with no obvious sludge or stone was found. The patient does not report any heavy drinking, although he does have occasional binge drinking at a social gatherings. He also had smoked 10 cigarettes per day for about 20 years and quit 3 years ago. No other major risk factors. His symptoms had improved and I was kindly asked to consult regarding any possible surgical management. My review of the ultrasound concluded with possible sludge in the gallbladder. Given the lack of other heavy alcohol use and other risk factors, I had preliminarily indicated to the team that the patient could benefit potentially from a laparoscopic cholecystectomy for risk reduction. I had a chance to meet with the patient today after initially meeting them briefly yesterday including him and his and discussed my rationale with him ( was not present during the second meeting). Patient reported no major abdominal pain and overall feeling much improved since admission. No other complaints. ALLERGIES: NO KNOWN DRUG ALLERGIES. HOME MEDICATIONS: Occasional ibuprofen and magnesium hydroxide and Simethicone on an as needed basis. SOCIAL HISTORY: The patient lives with his family that includes his and his children. 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 He does not currently smoke but does report a 20 year history of approximately 10 cigarettes per day up to about 3 years ago. He does not drink on a regular basis and if he does, it is mainly with beer and only during social occasions. No reported intravenous drug use. FAMILY HISTORY: No mention of major medical, surgical or oncologic problems in the family. REVIEW OF SYSTEMS: Other than the above-mentioned, there are no other pertinent positives or pertinent negatives in a complete 14-point review of systems. PHYSICAL EXAMINATION: GENERAL: The patient appears to be a very pleasant gentleman of descent, appearing stated age, sitting in a chair comfortably and in no acute distress. BMI is 30.8. VITAL SIGNS: Temperature is 97.9, blood pressure 123/84, pulse 67, respiratory rate 18, pulse oximetry 97% on room air. HEENT: Normocephalic and atraumatic. Extraocular muscles and hearing are grossly intact bilaterally and symmetrically. Sclerae are nonicteric. Oral cavity is clear; oral mucosa appeared to be pink and moist. Dentition: fair. NECK: Supple. There is no lymphadenopathy or JVD. There is no submental, submandibular or supraclavicular lymphadenopathy. CHEST: Rises symmetrically with each breath; patient is breathing comfortably. There are no audible wheezes, rales or rhonchi on the gross exam. HEART: Pulse is regular and palpable on the right wrist. Capillary refill was normal. Carotid pulses are palpable bilaterally and symmetrically in the neck. EXTREMITIES: Lower extremities contain no pitting edema around the ankles bilaterally and symmetrically. ABDOMEN: Abdomen is soft, nontender and nondistended. There are no peritoneal signs or guarding. No evidence of ascites, organomegaly, caput medusae, engorged subcutaneous veins, or other abnormalities. SKIN: Appears to be pink and feels warm to touch. NEUROLOGIC: Awake, alert, and follows commands appropriately. LABORATORY VALUES: White blood cell count 6.5, hemoglobin 14.6, platelets 250. Electrolytes are normal. CO2 of 26, creatinine 0.80. Lipase today 1475. Amylase 130, total bilirubin 0.4, AST 32, ALT 41, alkaline phosphatase 98, albumin after resuscitation 4.3, triglycerides 178. Thyroid indices were normal. INR 0.99. IMAGING: Pertinent findings on the gallbladder ultrasound and abdominal and pelvic CT on 04/27/2017 were reviewed above. Note that I personally reviewed all the available information and I agree in general with their overall reported findings with the exception of possible sludge in the gallbladder seen in the right upper quadrant ultrasound. Dictated By: EILEEN GÓMEZ/KAILYN Conf#: [id number] DID#: [id number] MTDD
[2017-05-01 20:02] VITALS: BP 127/85; RESP 18
[2017-05-02] VITALS (18 sets, daily range): BP systolic 115–155; BP diastolic 73–96; PULSE 66–80; RESP 9–20
[2017-05-02] MEDS: morphine 2 MG INJ IV PRN (02:01)
[2017-05-02 05:49] LABS: ADD SCAN DIFF NO
[2017-05-02 05:56] LABS: BASOPHILS % 0.5 % (0.0-2.0); EOSINOPHILS # 0.2 10^3/ul (0.0-0.5); EOSINOPHILS % 3.1 % (0.0-7.0); HEMATOCRIT 45.2 % (42.0-52.0); HEMOGLOBIN 15.3 g/dl (14.0-18.0); LYMPHOCYTES # 2.9 10^3/ul (0.8-2.9); LYMPHOCYTES % 38.5 % (15.0-51.0); MEAN CORPUSCULAR HEMOGLOBIN 28.2 pg (29.0-33.0); MEAN CORPUSCULAR HGB CONC 33.8 g/dl (32.0-37.0); MEAN CORPUSCULAR VOLUME 83.4 fl (82.0-101.0); MEAN PLATELET VOLUME 10.9 fl (7.4-10.4); MONOCYTE # 0.5 10^3/ul (0.3-0.9); MONOCYTES % 6.6 % (0.0-11.0); NEUTROPHIL # 3.8 10^3/ul (1.6-7.5); NEUTROPHILS % 50.9 % (39.0-77.0); PLATELET COUNT 272 10^3/UL (140-415); RED BLOOD COUNT 5.42 10^6/ul (4.70-6.10); RED CELL DISTRIBUTION WIDTH 13.3 % (11.5-14.5); WHITE BLOOD COUNT 7.4 10^3/ul (4.8-10.8)
[2017-05-02] MEDS ORDERED: CEFAZOLIN 1 GM INJ ONE (07:00)
[2017-05-02 07:25] LABS: CREATININE 0.89 mg/dl (0.61-1.24); POTASSIUM 4.5 mmol/L (3.5-5.1)
[2017-05-02] MEDS: ENOXAPARIN 40 MG/0.4 ML SYG SC SCH (09:00)
--- NOTE | 2017-05-02 11:26 | PN ---
Date/Time of Note Date/Time of Note DATE: 05/02/17 TIME: 11:25 Assessment/Plan VTE Prophylaxis VTE Prophylaxis Intervention: SCD's Lines/Catheters IV Catheter Type (from Nrsg): [place] Assessment/Plan Assessment/Plan 46 yo M presented with abd pain found to have elevated lipase concerning for pancreatitis. Given delay in resolution of elevated lipase, concern for biliary pathology. PLAN: lap [place] today from gen surg cont DVT prophx Subjective 24 Hr Interval Summary Free Text/Dictation Pt states he feels well. Denies abd pain. Exam/Review of Systems Vital Signs Vitals Vital Signs Date Time Temp Pulse Resp B/P Pulse Ox O2 Delivery O2 Flow Rate FiO2 05/02/17 08:23 97.8 56 20 115/73 98 05/01/17 09:47 Room Air Intake and Output 05/01/17 05/01/17 05/02/17 15:00 23:00 07:00 Intake Total 700 ml 1510 ml 0 ml Balance 700 ml 1510 ml 0 ml Exam nad, walking to bathroom resp nonlabored no gross abd distension no le edema no rashes Results Result Diagram: 05/02/17 0500 05/02/17 0500 Results 24 hrs Laboratory Tests Test 05/02/17 05:00 White Blood Count 7.4 Red Blood Count 5.42 Hemoglobin 15.3 Hematocrit 45.2 Mean Corpuscular Volume 83.4 Mean Corpuscular Hemoglobin 28.2 L Mean Corpuscular Hemoglobin Concent 33.8 Red Cell Distribution Width 13.3 Platelet Count 272 Mean Platelet Volume 10.9 H Neutrophils % 50.9 Lymphocytes % 38.5 Monocytes % 6.6 Eosinophils % 3.1 Basophils % 0.5 Nucleated Red Blood Cells % 0.0 Neutrophils # 3.8 Lymphocytes # 2.9 Monocytes # 0.5 Eosinophils # 0.2 Basophils # 0.0 Nucleated Red Blood Cells # 0.0 Sodium Level 143 Potassium Level 4.5 Chloride Level 105 Carbon Dioxide Level 25 Anion Gap 18 H Blood Urea Nitrogen 19 Creatinine 0.89 Glucose Level 108 Calcium Level 10.0 Medications Medications Current Medications Ondansetron HCl (Zofran Inj) 4 mg Q6H PRN IV NAUSEA AND/OR VOMITING; Start at 07:30 Acetaminophen (Tylenol Tab) 650 mg Q6H PRN PO PAIN LEVEL 1-3 OR FEVER Last administered on 04/28/17 15:16; Admin Dose 650 MG; Start 04/27/17 at 07:30 Acetaminophen/ Hydrocodone Bitart ([place] (5/325)) 1 tab Q6H PRN PO MODERATE PAIN LEVEL 4-6 Last administered on 04/30/17 20:45; Admin Dose 1 TAB; Start at 07:30 Morphine Sulfate (morphine) 2 mg Q4H PRN IV SEVERE PAIN LEVEL 7-10 Last administered on 05/02/17 02:01; Admin Dose 2 MG; Start 04/27/17 at 07:30 Simethicone (Mylicon) 80 mg Q2H PRN PO DISTENSION/GAS/BLOATING Last administered on 04/29/17 21:35; Admin Dose 80 MG; Start 04/29/17 at 13:30 Enoxaparin Sodium (Lovenox) 40 mg DAILY SC ; Start 05/02/17 at 09:00 OMEGA JACOBO MD May 02, 2017 11:26
--- NOTE | 2017-05-02 15:27 | HPN ---
Date/Time of Note Date/Time of Note DATE: 05/02/17 TIME: 15:26 Interval H&P Admission Note Pt. seen H&P reviewed: No system changes Pt. seen H&P reviewed. No system changes (I attest that I have seen and examined the patient and reviewed the operation in detail, as well as its risks , benefits and alternatives of the operation). I attest that I have seen and examined the patient and reviewed in detail the operation, and its associated risks, benefits and alternative. I have answered all the patient's questions to the best of my ability and the patient wishes to proceed. Please refer to rest of electronic medical record for additional updates. EILEEN REA M.D. May 02, 2017 15:27
[2017-05-02] MEDS ORDERED: PROPOFOL 20 ML ONE (15:41)
[2017-05-02] MEDS ORDERED: LIDOCAINE 2% (SDV) 5 ML INJ ONE (15:41)
[2017-05-02] MEDS ORDERED: NEOSTIGMINE 3 MG/3 ML SYRINGE ONE (15:41)
[2017-05-02] MEDS ORDERED: MIDAZOLAM 1 MG/ML 2 ML INJ ONE (15:41)
[2017-05-02] MEDS ORDERED: ROCURONIUM 50 MG INJ ONE (15:41)
[2017-05-02] MEDS ORDERED: GLYCOPYRROLATE 0.4 MG INJ ONE (15:41)
[2017-05-02] MEDS ORDERED: FENTAnyl 50 MCG/ML VIAL ONE ×2 (15:41→17:40)
[2017-05-02] MEDS ORDERED: SUCCINYLCHOLINE CHLORIDE 100 MG/5 ML SYG IV ONE (15:42)
[2017-05-02] MEDS ORDERED: BUPIVACAINE 0.25%/EPI (SDV) 30 ML INJ ONE (15:42)
[2017-05-02] MEDS ORDERED: DEXAMETHASONE 4 MG/ML 1 ML INJ ONE (15:48)
[2017-05-02] MEDS ORDERED: ONDANSETRON 4 MG INJ ONE (15:49)
--- NOTE | 2017-05-02 17:26 | OPR ---
Date/Time of Note Date/Time of Note DATE: 05/02/17 TIME: 17:26 Operative Report Procedure Description [facility] INPATIENT OPERATIVE NOTE PLACE OF SERVICE: [facility] DATE OF SURGERY: 05/02/2017 PREOPERATIVE DIAGNOSIS: 1. Acute pancreatitis, likely due to gallbladder sludge 2. BMI 30.8 3. Vascular calcifications POSTOPERATIVE DIAGNOSIS: 1. Acute pancreatitis, likely due to gallbladder sludge 2. BMI 30.8 3. Vascular calcifications OPERATION: 1. Laparoscopic cholecystectomy SURGEON: Eileen Rea M.D. GREENHOUSE GROWER: Karley ANESTHESIA: General endotracheal tube anesthesia ANESTHESIOLOGIST: Colt Basilio M.D. BRIEF SUMMARY: An otherwise uncomplicated laparoscopic cholecystectomy was performed with findings of gallbladder sludge with thick and almost purulent bile and distended gallbladder. Updated Clinical Summary: A very pleasant 46-year-old gentleman with comorbidity a BMI of 30.8, admitted through the emergency department to [facility] on 04/27/2017 with pancreatitis. COMORBIDITIES: 1. BMI 30.8. 2. Vascular calcifications. BRIEF HISTORY: The patient is a very pleasant 46-year-old gentleman with comorbidity a BMI of 30.8, admitted through the emergency department to [facility] on 04/27/2017 with pancreatitis. His pancreatitis appeared to be due to sludge disease in the gallbladder. Interestingly, the patient also reported having issues with dairy products and certain foods with right upper quadrant pain and for this reason, he had been avoiding those foods. This could certainly also had beeen from gallbladder disease. I believed that the patient could benefit from a laparoscopic cholecystectomy in order to decrease the chances of him having a repeat episode of pancreatitis in the next 6 months from 30% down to the normal range, which is near 0. I reviewed the rationale behind my recommendation with the patient with the help of diagrams and reviewed the operation in detail including the risks, benefits and alternatives in detail. I answered all the patient's questions to the best of my ability. After careful consideration of all his options, including the risks, benefits and alternatives, the patient appeared to understand and agree with the procedure. For a detailed report of my consultation with patient and family, please refer to my separate consultation note. STATEMENT OF THE INFORMED CONSENT: The patient and family appeared to understand the risks of the operation to include, but not be limited to risk of postoperative pain and scar tissue, possible infection or bleeding requiring other interventions such as opening the wound, placement of drainage catheters, or other operative interventions; possible injury to surrounding to structures including bowel, bladder, bile duct, or blood vessels, or solid organs such as liver, kidney, or pancreas requiring other interventions or procedures; possible leakage of bile from surgical clip sites, suture lines, or worse, from common bile duct injury, causing significant increase in morbidity and mortality and requiring multiple interventions including but not limited to, placement of drainage catheters, imaging studies, as well as operative interventions; possible other source of sepsis such as urinary tract infections or pneumonias, or other sources of potentially life threatening problems such as deep venous thrombus formation causing pulmonary embolism, myocardial arrhythmias and infarctions, and even . After careful consideration of all their options, the patient and family appeared to understand and wished to proceed with surgery. DESCRIPTION OF PROCEDURE: After obtaining informed consent, the patient was brought into the operating room and was placed in a normal supine position, where successful general endotracheal tube anesthesia was performed. The patient 's abdominal skin was prepped and draped, from the nipple line down to the level of the groins, in the usual sterile fashion. Intravenous access was already in place, and appropriately chosen and dosed prophylactic intravenous antimicrobials were administered. We then called a surgical time-out where patient's identification, date of , nature of the operation, allergies, presence of intravenous antimicrobials, presence of needed equipment, and any other concerns were reviewed and agreed upon by all members of the operating room team. We then started the operation by placing a 5-mm skin incision in the right- upper quadrant, subcostal midclavicular line, and introduced a 5-mm [employer] trocar into the peritoneal space, visualizing all the layers of the abdominal wall as we entered. Note that there was no indication of any injury to underlying structures once we entered the peritoneum. We insufflated the abdominal cavity to a maximum pressure of 15 mmHg, again, confirmed lack of any injury to underlying structures prior to visualizing the rest of the abdominal cavity. We found the fundus of the gallbladder to be visible. The gallbladder appeared to be distended. There was no evidence of malignancy. No evidence of calcifications or significant issues with adhesions, or other abnormalities. The liver appeared to be healthy. There was swelling in the area of the antrum of the stomach and sweep of the duodenum reminiscent of recent pancreatitis, but there was no evidence of calcifications on the peritoneum or other evidence of severe pancreatitis. With this information, we went a head and placed the other trocars under direct visualization, after injecting their sites with 0.25% Marcaine with epinephrine , placing a 5-mm trocar in the umbilical midline area, a 5-mm trocar in the right anterior axillary line, and a 12-mm trocar in the midline subxiphoid region. With our instruments in place, we had excellent visualization and access to the right-upper quadrant. We then drained the gallbladder using a laparoscopic needle prior to grasping the fundus of the gallbladder and pointed up towards the right-upper quadrant. We were then able to grasp the infundibulum and pull it out in order to expose the critical triangle of Calot. We then placed our usual serosal cuts along the long axis of the gallbladder 1 cm away from its attachment to the liver bed up towards the fundus, and then joined these 2 lines under the infundibulum, taking care not to deliver any energy to underlying structures. In order to maximize the degree of safety of the operation, I decided to take the gallbladder top-down which we accomplished using cautery. We then performed meticulous dissection to identify and circumferentially isolate both the cystic duct and cystic artery, prior to transecting them between 2 surgical Endoclips, proximally and one distally on the cystic artery and 3 surgical endoclips proximally and one distally on the cystic duct, transecting both using cold scissors, and only after making sure that these were the only 2 structures going into the gallbladder. We then shaved the gallbladder off the gallbladder bed using cautery, and then delivered it out inside of an EndoCatch bag through the 12-mm trocar site without enlarging the fascia or contaminating the wound. The gallbladder was sent to Pathology for evaluation. Returning to the abdominal cavity, we ensured that there was adequate hemostasis and bile-stasis prior to removal of all of or equipment, including the pneumoperitoneum, and then reapproximating the 12-mm trocar site with one [id number] 0 Vicryl suture, followed by washing the wounds with copious amounts of normal saline, and then reapproximating the skin using interrupted 4- 0 Monocryl sutures. Light dressing was then applied. At the end of the operation, both the sponge count and needle count were reportedly correct x2. The patient tolerated the procedure without any reported complications. ESTIMATED BLOOD LOSS: 5 mL BLOOD OR BLOOD PRODUCT TRANSFUSIONS: None to my knowledge. SPECIMENS: 1. Gallbladder COMPLICATIONS: None. DISPOSITION: Recovery area. Disclaimer: Inadvertent spelling and grammatical errors are likely due to EHR/ dictation software use and do not reflect on the quality of delivered patient care. EILEEN REA M.D. May 02, 2017 17:26
[2017-05-02] MEDS ORDERED: NA PHOSPHATE/BIPHOS 133 ML ENEMA PR PRN (17:30)
[2017-05-02] MEDS ORDERED: HYDROmorphONE 1 MG/ML SYG IV PRN ×2 (17:30)
[2017-05-02] MEDS ORDERED: BISACODYL 10 MG SUPP PR PRN (17:30)
[2017-05-02] MEDS ORDERED: HYDROCODONE/APAP (5/325) TAB PO PRN (17:30)
[2017-05-02] MEDS ORDERED: DOCUSATE SODIUM 100 MG CAP PO PRN (17:30)
[2017-05-02] MEDS ORDERED: HYDROmorphONE (0.2 MG/ML) 10ML SYG IV PRN ×2 (18:00)
[2017-05-02] MEDS ORDERED: hydrALAzine 20 MG INJ IV PRN (18:00)
[2017-05-02] MEDS ORDERED: DIPHENHYDRAMINE 50 MG INJ IV PRN (18:00)
[2017-05-02] MEDS ORDERED: OXYCODONE/ACETAMINOPHEN (5/325) TAB PO PRN ×2 (18:00)
[2017-05-02] MEDS ORDERED: EPHEDrine SULFATE 50 MG/5 ML SYG IV PRN (18:00)
[2017-05-02] MEDS ORDERED: morphine (1 MG/ML) 10ML SYRINGE IV PRN ×3 (18:00)
[2017-05-02] MEDS ORDERED: ONDANSETRON 4 MG INJ IV PRN (18:00)
[2017-05-02] MEDS ORDERED: MIDAZOLAM 1 MG/ML 2 ML INJ IV PRN (18:00)
[2017-05-02] MEDS ORDERED: MEPERIDINE 25 MG INJ IV PRN (18:00)
[2017-05-02] MEDS ORDERED: LABETALOL HCL 20MG INJ IV PRN (18:00)
[2017-05-02] MEDS ORDERED: FENTAnyl 50 MCG/ML VIAL IV PRN ×2 (18:00)
[2017-05-02] MEDS ORDERED: ATROPINE 1 MG/10 ML SYRINGE IV PRN (18:00)
[2017-05-02] MEDS: HYDROmorphONE (0.2 MG/ML) 10ML SYG IV PRN ×2 (18:12→18:18)
[2017-05-02] MEDS: D5W-0.45 NACL + KCL 20 MEQ 1,000 ML IV SCH (18:39)
[2017-05-02] MEDS: HYDROCODONE/APAP (5/325) TAB PO PRN (21:15)
[2017-05-03] MEDS: D5W-0.45 NACL + KCL 20 MEQ 1,000 ML IV SCH ×2 (02:55→13:15)
[2017-05-03 06:00] LABS: ADD SCAN DIFF NO
[2017-05-03 06:22] LABS: BASOPHILS % 0.1 % (0.0-2.0); HEMATOCRIT 43.5 % (42.0-52.0); LYMPHOCYTES # 1.4 10^3/ul (0.8-2.9); MEAN CORPUSCULAR HEMOGLOBIN 28.1 pg (29.0-33.0); MEAN CORPUSCULAR HGB CONC 34.5 g/dl (32.0-37.0); MEAN CORPUSCULAR VOLUME 81.6 fl (82.0-101.0); MEAN PLATELET VOLUME 11.1 fl (7.4-10.4); MONOCYTE # 0.2 10^3/ul (0.3-0.9); MONOCYTES % 2.2 % (0.0-11.0); NEUTROPHIL # 9.1 10^3/ul (1.6-7.5); NEUTROPHILS % 84.2 % (39.0-77.0); PLATELET COUNT 289 10^3/UL (140-415); RED BLOOD COUNT 5.33 10^6/ul (4.70-6.10); RED CELL DISTRIBUTION WIDTH 13.2 % (11.5-14.5); WHITE BLOOD COUNT 10.8 10^3/ul (4.8-10.8)
[2017-05-03 07:04] LABS: CREATININE 0.75 mg/dl (0.61-1.24)
[2017-05-03 08:17] VITALS: BP 136/90; RESP 18
[2017-05-03] MEDS: HYDROCODONE/APAP (5/325) TAB PO PRN ×2 (08:34→12:39)
[2017-05-03] MEDS: ENOXAPARIN 40 MG/0.4 ML SYG SC SCH ×2 (08:54→09:44)
[2017-05-03] MEDS ORDERED: FAMOTIDINE 20 MG INJ IV SCH (09:00)
--- NOTE | 2017-05-03 10:37 | PN ---
Date/Time of Note Date/Time of Note DATE: 05/03/17 TIME: 10:36 Assessment/Plan VTE Prophylaxis VTE Prophylaxis Intervention: SCD's Lines/Catheters IV Catheter Type (from Nrsg): Peripheral IV Assessment/Plan Assessment/Plan 46 yo M presented with abd pain found to have elevated lipase concerning for pancreatitis. Given delay in resolution of elevated lipase, concern for biliary pathology. sp lap stanley 6.27 by gen surg. Abd pain improved discharge when cleared by gen surg cont DVT prophx Subjective 24 Hr Interval Summary Free Text/Dictation Pt with minimal abd pain. Wondering when he can go home. Exam/Review of Systems Vital Signs Vitals Vital Signs Date Time Temp Pulse Resp B/P Pulse Ox O2 Delivery O2 Flow Rate FiO2 05/03/17 08:17 98.2 71 18 136/90 92 05/02/17 18:42 Nasal Cannula 2.0 Intake and Output 05/02/17 05/02/17 05/03/17 15:00 23:00 07:00 Intake Total 1000 ml 1550 ml Output Total 5 ml 1250 ml Balance 995 ml 300 ml Exam nad, sitting up in bed no mrg lungs clear abd soft, +laproscopic incision sites dressed no le edema Results Result Diagram: 05/03/17 0508 05/03/17 0508 Results 24 hrs Laboratory Tests Test 05/03/17 05:08 White Blood Count 10.8 # Red Blood Count 5.33 Hemoglobin 15.0 Hematocrit 43.5 Mean Corpuscular Volume 81.6 L Mean Corpuscular Hemoglobin 28.1 L Mean Corpuscular Hemoglobin Concent 34.5 Red Cell Distribution Width 13.2 Platelet Count 289 Mean Platelet Volume 11.1 H Neutrophils % 84.2 H Lymphocytes % 13.0 L Monocytes % 2.2 Eosinophils % 0.0 Basophils % 0.1 Nucleated Red Blood Cells % 0.0 Neutrophils # 9.1 H Lymphocytes # 1.4 Monocytes # 0.2 L Eosinophils # 0.0 Basophils # 0.0 Nucleated Red Blood Cells # 0.0 Sodium Level 140 Potassium Level 4.0 Chloride Level 103 Carbon Dioxide Level 25 Anion Gap 16 Blood Urea Nitrogen 13 Creatinine 0.75 Glucose Level 177 Calcium Level 10.0 Medications Medications Current Medications Ondansetron HCl (Zofran Inj) 4 mg Q6H PRN IV NAUSEA AND/OR VOMITING; Start at 07:30 Acetaminophen (Tylenol Tab) 650 mg Q6H PRN PO PAIN LEVEL 1-3 OR FEVER Last administered on 04/28/17 15:16; Admin Dose 650 MG; Start 04/27/17 at 07:30 Simethicone (Mylicon) 80 mg Q2H PRN PO DISTENSION/GAS/BLOATING Last administered on 05/03/17 08:33; Admin Dose 80 MG; Start 04/29/17 at 13:30 Enoxaparin Sodium 40 mg 40 mg DAILY SC Last administered on 05/03/17 09:44; Admin Dose 40 MG; Start 05/02/17 at 09:00 Potassium Chloride/Dextrose/ Sod Cl (D5-1/2ns + KCl 20 Meq) 1,000 ml @ 100 mls/ hr Q10H IV Last administered on 05/03/17 02:55; Admin Dose 100 MLS/HR; Start 05/02/17 at 17:15 Acetaminophen/ Hydrocodone Bitart ([place] (5/325)) 1 tab Q4H PRN PO PAIN LEVEL 4 -7; Start 05/02/17 at 17:30 Acetaminophen/ Hydrocodone Bitart ([place] (5/325)) 2 tab Q4H PRN PO PAIN LEVEL 7 -10 Last administered on 05/03/17 08:34; Admin Dose 2 TAB; Start 05/02/17 at 17 :30 Hydromorphone HCl (Dilaudid) 0.5 mg Q2 PRN IV PAIN; Start 05/02/17 at 17:30 Hydromorphone HCl (Dilaudid) 1 mg Q2 PRN IV PAIN Last administered on 01:42; Admin Dose 1 MG; Start 05/02/17 at 17:30 Docusate Sodium (Colace) 100 mg BID PRN PO CONSTIPATION; Start 05/02/17 at 17: 30 Bisacodyl (Dulcolax Supp) 10 mg BID PRN MD CONSTIPATION; Start 05/02/17 at 17: 30 Sodium Biphosphate/ Sodium Phosphate (Fleet Enema) 133 ml BID PRN MD CONSTIPATION; Start 05/02/17 at 17:30 Famotidine (Pepcid Iv) 20 mg DAILY IV Last administered on 05/03/17 08:33; Admin Dose 20 MG; Start 6/28/17 at 09:00 OMEGA JACOBO MD May 03, 2017 10:36
--- NOTE | 2017-05-03 13:09 | PN ---
Date/Time of Note Date/Time of Note DATE: 05/03/17 TIME: 13:06 Assessment/Plan Lines/Catheters IV Catheter Type (from Nrs): Peripheral IV Assessment/Plan Assessment/Plan [facility] Progress Note Date of Service: 05/03/17 Today's Impression & Plan: Overall doing well post op without major issues. No major wound problems. Pancreatitis seems clinically resolved. With above assessment, I've recommended the following for today: 1. D/c home 2. F/u with PCP 3. F/u with us in 1-2 weeks 4. D/c instructions: "Please call [phone] if any of fever, nausea, vomiting, discharge from wound, wound redness, increase or sudden pain, blood in stool or vomit, or any other unusual signs or symptoms. Also, please call the same number in a few days to schedule an appointment for your follow up visit. Patient may remove dressings tomorrow. Showers OK starting tomorrow. No swimming , hot tub or bath for 2 weeks. No lifting more than 25 lbs for 8 weeks." Thank you again for your great care of this very pleasant patient and wonderful family. If there are any questions, please feel free to call me at [phone]. TOTAL VISIT TIME: 20 minutes of which more than half was spent in [id number] discussion with the patient, possibly including family, as well as coordination of care between multiple physicians and providers. Disclaimer: Inadvertent spelling or grammatical errors are likely due to EHR/ dictation software use and do not reflect on the overall quality of patient care. Updated Clinical Summary: A very pleasant 46-year-old gentleman with comorbidity a BMI of 30.8, admitted through the emergency department to [facility] on 04/27/2017 with pancreatitis; s/p an otherwise uncomplicated laparoscopic cholecystectomy at [facility] on 05/02/17 with findings of gallbladder sludge with thick and almost purulent bile and distended gallbladder COMORBIDITIES: 1. Acute pancreatitis, likely due to gallbladder sludge; s/p an otherwise uncomplicated laparoscopic cholecystectomy at [facility] on 05/02/17 with findings of gallbladder sludge with thick and almost purulent bile and distended gallbladder 2. BMI 30.8 3. Vascular calcifications Subjective: No major events or complaints; no abd pain and under control with medications; no n/v/d; no sob or cp; + flatus; - BM; + activity Objective: Vitals: See below Exam: GENERAL: On exam, the patient was laying in bed and appeared to be comfortable and in no acute distress. ABDOMEN: Soft, nontender and nondistended. Incision dressings are clean, dry and intact without any evidence of obvious underlying erythema, edema, discharge , or hernia. There are no peritoneal signs or guarding. SKIN: Skin appears to be pink and feels warm to touch. NEUROLOGIC: Patient is awake, alert, and follows commands appropriately. Exam/Review of Systems Vital Signs Vitals Vital Signs Date Time Temp Pulse Resp B/P Pulse Ox O2 Delivery O2 Flow Rate FiO2 05/03/17 08:17 98.2 71 18 136/90 92 05/02/17 18:42 Nasal Cannula 2.0 Intake and Output 05/02/17 05/02/17 05/03/17 15:00 23:00 07:00 Intake Total 1000 ml 1550 ml Output Total 5 ml 1250 ml Balance 995 ml 300 ml Results Result Diagram: 05/03/17 0508 05/03/17 0508 EILEEN REA M.D. May 03, 2017 13:09
[2017-05-03] MEDS ORDERED: HYDR-3498 PO (15:25)
--- NOTE | 2017-05-03 15:26 | PDOCDIS ---
Discharge Instructions CONDITION Patient Condition: Good HOME CARE INSTRUCTIONS: Special Diet: regular FOLLOW UP/APPOINTMENTS Follow-up Plan Please call [phone] if any of fever, nausea, vomiting, discharge from wound , wound redness, increase or sudden pain, blood in stool or vomit, or any other unusual signs or symptoms. Also, please call the same number in a few days to schedule an appointment for your follow up visit. Dr Spaulding Patient may remove dressings tomorrow. Showers OK starting tomorrow. No swimming , hot tub or bath for 2 weeks. No lifting more than 25 lbs for 8 weeks. OMEGA JACOBO MD May 03, 2017 15:26
--- NOTE | 2017-05-03 15:27 | DS ---
Date/Time of Note Date/Time of Note DATE: 05/03/17 TIME: 15:26 Discharge Summary Admission/Discharge Info Admit Date/Time Apr 27, 2017 at 05:13 Discharge Date/Time Patient Condition: Good Consults general surgery Procedures 04.27 CT A/P 1. No CT evidence for obstructive uropathy or renal calculi. 2. Mild retained stool without obstruction. 3. No CT evidence for appendicitis. 4. Vascular calcifications. gallbladder US: Unremarkable right upper quadrant abdominal ultrasound. 05.02 Laparoscopic cholecystectomy Hx of Present Illness The patient is a 46-year-old male with no medical history. He states for the past several days now he has been having worsening abdominal pain associated with nausea, difficulty eating. He states that when he eats the pain gets worse. In the ED the patient was noted to have a lipase of 2,459. He states that he has never had pancreatitis before. He denies any alcohol abuse. He states that he has not drank for many years now. The patient has no other complaints at this time. Hospital Course Pt admitted for pancreatitis given elevated lipase. After several days of GI/ biliary tract rest and IVFs pain did not improve. General surgery consulted, pain thought to be possibly 2/2 gallbladder sludge. Pt underwent lap stanley 05.02. Post operative course uncomplicated. Abd pain resolved after cholecystectomy Home Meds Active Scripts Hydrocodone Bit-Acetaminophen (Hydrocodone Bit-APAP) 5-325MG Tablet, 1 TAB PO Q4H Y for PAIN LEVEL 7-10 for 5 Days, #10 TAB Prov:OMEGA JACOBO MD 05/03/17 Reported Medications Ibuprofen* (Ibuprofen*) 200 Mg Capsule, 200 MG PO Q6, CAP 04/27/17 Magaldrate/Simethicone* (Mag-Al Plus Suspension*) 30 Ml Oral.susp, 30 ML PO Q6H Y for GASTROINTESTINAL UPSET, ML 04/27/17 Discontinued Scripts Famotidine* (Pepcid*) 20 Mg Tablet, 20 MG PO BID, #20 TAB Prov:JESSICA DUBOIS PA-C 04/21/16 Primary Care Provider Care Physician No Primary Time spent on discharge: > 30 minutes Pending Labs Laboratory Tests Test 05/03/17 05:08 White Blood Count 10.810^3/ul (4.8-10.8) Red Blood Count 5.3310^6/ul (4.70-6.10) Hemoglobin 15.0g/dl (14.0-18.0) Hematocrit 43.5% (42.0-52.0) Mean Corpuscular Volume 81.6fl (82.0-101.0) Mean Corpuscular Hemoglobin 28.1pg (29.0-33.0) Mean Corpuscular Hemoglobin Concent 34.5g/dl (32.0-37.0) Red Cell Distribution Width 13.2% (11.5-14.5) Platelet Count 36175^3/UL (140-415) Mean Platelet Volume 11.1fl (7.4-10.4) Neutrophils % 84.2% (39.0-77.0) Lymphocytes % 13.0% (15.0-51.0) Monocytes % 2.2% (0.0-11.0) Eosinophils % 0.0% (0.0-7.0) Basophils % 0.1% (0.0-2.0) Nucleated Red Blood Cells % 0.0/100WBC (0.0-0.0) Neutrophils # 9.110^3/ul (1.6-7.5) Lymphocytes # 1.410^3/ul (0.8-2.9) Monocytes # 0.210^3/ul (0.3-0.9) Eosinophils # 0.010^3/ul (0.0-0.5) Basophils # 0.010^3/ul (0.0-0.1) Nucleated Red Blood Cells # 0.010^3/ul (0.0-0.0) Sodium Level 140mmol/L (135-144) Potassium Level 4.0mmol/L (3.5-5.1) Chloride Level 103mmol/L (97-110) Carbon Dioxide Level 25mmol/L (21-31) Anion Gap 16 (8-16) Blood Urea Nitrogen 13mg/dl (7-20) Creatinine 0.75mg/dl (0.61-1.24) Glucose Level 177mg/dl (70-220) Calcium Level 10.0mg/dl (8.4-10.2) OMEGA JACOBO MD May 03, 2017 15:26
[2017-05-04] MEDS ORDERED: FAMOTIDINE 20 MG TAB PO SCH (09:00)
== END 2017-05-03 17:10 | disposition home or self-care (01) | DRG 419 ==
LOC: E/R 01:30 → PP2 05:13
PROVIDERS: ADMIT Internal Medicine; ATTEND Internal Medicine
PROC: 0FT44ZZ Resection of Gallbladder, Percutaneous Endoscopic Approach (ICD-10-PCS; principal; 2017-05-02 16:00)
DX: K85.90 Acute pancreatitis without necrosis or infection, unspecified (principal); E11.9 Type 2 diabetes mellitus without complications; K82.8 Other specified diseases of gallbladder; E66.9 Obesity, unspecified; Z68.30 Body mass index [BMI] 30.0-30.9, adult
CPT/HCPCS: 36415; 74176; 76705; 80048; 80053; 80061; 82150; 83036; 83690; 83735; 84100; 84436; 84479; 85025; 85610; 85730; 88304; 93005; 96374; 96375; J0690; J1100; J1170; J1650; J1885; J2250; J2270; J2405; J2710; J3010; J3480; J7999

== ENCOUNTER 2017-05-17 14:40 | Outpatient (CLI) | payer SELFPAY ==
[~2017-05-17] VITALS: Ht 172.7 cm; Wt 90.4 kg
[~2017-05-17 14:40] MED LIST changes: -FAMO-18 PO; +HYDR-3498 PO; +IBUP200C PO; +UDMYL PO
[2017-05-17 14:47] VITALS: BP 126/82; PULSE 65; RESP 16; Ht 172.7 cm; Wt 90.4 kg
--- NOTE | 2017-05-17 16:23 | PN ---
Date/Time of Note Date/Time of Note DATE: 05/17/17 TIME: 16:18 Assessment/Plan Assessment/Plan Assessment/Plan [facility] Progress Note Date of Service: 05/17/17 Today's Impression & Plan: Overall doing well post op without major issues. No major wound problems. No further issues with pancreatitis. No indication for acute surgical intervention. Spent an extra 15 minutes in counseling regarding healthy ways of living and ways to achieve those including smarter and more educated choices regarding food, caloric intake, and importance of consistent daily exercise. Answered all questions. Patient and his appear to understand and agreed with the plans. With above assessment, I've recommended the following for today: 1. F/u with PCP 2. F/u with us prn Thank you again for your great care of this very pleasant patient and wonderful family. If there are any questions, please feel free to call me at [phone]. Nature of presenting problem: Moderate to high severity Disclaimer: Inadvertent spelling or grammatical errors are likely due to EHR/ dictation software use and do not reflect on the overall quality of patient care. Updated Clinical Summary: A very pleasant 46-year-old gentleman with comorbidity a BMI of 30.8, admitted through the emergency department to [facility] on 04/27/2017 with pancreatitis; s/p an otherwise uncomplicated laparoscopic cholecystectomy at [facility] on 05/02/17 with findings of gallbladder sludge with thick and almost purulent bile and distended gallbladder. D/c home 05/03/17. COMORBIDITIES: 1. Acute pancreatitis, likely due to gallbladder sludge; s/p an otherwise uncomplicated laparoscopic cholecystectomy at [facility] on 05/02/17 with findings of gallbladder sludge with thick and almost purulent bile and distended gallbladder 2. BMI 30.8 3. Vascular calcifications Subjective: No major events or complaints since discharge; no abd pain and no longer taking pain medications; no n/v/d; no sob or cp; + flatus; + BM; + activity Objective: Vitals: See below Exam: GENERAL: On exam, the patient was laying in bed and appeared to be comfortable and in no acute distress. ABDOMEN: Soft, nontender and nondistended. Incisions are clean, dry and intact without any evidence of obvious erythema, edema, discharge, or hernia. There are no peritoneal signs or guarding. SKIN: Skin appears to be pink and feels warm to touch. NEUROLOGIC: Patient is awake, alert, and follows commands appropriately. Exam/Review of Systems Vital Signs Vitals Vital Signs Date Time Temp Pulse Resp B/P Pulse Ox O2 Delivery O2 Flow Rate FiO2 05/17/17 14:47 98.1 65 16 126/82 98 Room Air EILEEN REA M.D. May 17, 2017 16:23
== END 2017-05-17 16:45 | disposition home or self-care (01) ==
LOC: HPC 14:40
PROVIDERS: ATTEND Transplant Surgery
DX: K85.90 Acute pancreatitis without necrosis or infection, unspecified (principal)
CPT/HCPCS: G0463

== ENCOUNTER 2017-06-12 21:01 | Inpatient (IN) | END 2017-06-21 17:06 | disposition home or self-care (01) | DRG 440 | DX: K85.90 Acute pancreatitis without necrosis or infection, unspecified (principal); E78.5 Hyperlipidemia, unspecified; R73.03 Prediabetes; Z72.0 Tobacco use ==

== ENCOUNTER 2018-12-13 22:47 | Emergency (ER) | payer MEDICAID ==
[~2018-12-13] VITALS: Ht 177.8 cm; Wt 87.0 kg
[~2018-12-13 22:47] MED LIST changes: +CYCL10TA7 PO; -HYDR-3498 PO; +HYDR-4011 PO; -IBUP200C PO; +PANT40TA4 PO; -UDMYL PO
[2018-12-13 23:06] VITALS: Ht 177.8 cm; Wt 87.0 kg
[2018-12-14] MEDS ORDERED: HYDR-4011 PO (00:50)
[2018-12-14] MEDS ORDERED: IBUP800T48 PO (00:50)
[2018-12-14] MEDS ORDERED: AMOX500C2 PO (00:50)
[2018-12-14] MEDS ORDERED: IBUPROFEN 800 MG TAB PO ONE (01:00)
--- NOTE | 2018-12-14 01:01 | ERD ---
ER Documentation Chief Complaint Chief Complaint C/O LT UPPER TOOTH ACHE X3 DAYS HPI Patient presents with dental pain in his left upper molar tooth that has had for 3 days. He did see a dentist about a week ago for routine cleaning and since then has been having pain. He noticed a black spot on his teeth and so he was concerned. He did not follow-up with dentist again but states he will go tomorrow. He has been taking Tylenol but is not controlling the pain. He is tolerating oral intake. No vomiting. No fevers. ROS All systems reviewed and are negative except as per history of present illness. Medications Home Meds Active Scripts Hydrocodone/Acetaminophen (Inwood 5-325 Tablet) 1 Each Tablet, 1 TAB PO Q6H PRN for PAIN, #15 TAB Prov:GIULIA ARAUJO PA-C 12/14/18 Ibuprofen* (Motrin*) 800 Mg Tab, 800 MG PO Q6, #30 TAB Prov:GIULIA ARAUJO PA-C 12/14/18 Amoxicillin* (Amoxicillin*) 500 Mg Cap, 500 MG PO BID for 7 Days, CAP Prov:GIULIA ARAUJO PA-C 12/14/18 Hydrocodone/Acetaminophen (Inwood 5-325 Tablet) 1 Each Tablet, 1 EACH PO Q6 PRN for PAIN, #20 TAB Prov:JOSE J CARRERA 06/21/17 Reported Medications Cyclobenzaprine Hcl* (Cyclobenzaprine Hcl*) 10 Mg Tablet, 10 MG PO Q8 for MUSCLE SPASMS, #60 TAB 06/13/17 Pantoprazole* (Pantoprazole*) 40 Mg Tablet.dr, 40 MG PO AC BREAKFAST, TAB 06/13/17 Allergies Allergies: Coded Allergies: No Known Drug Allergy (Verified Allergy, Mild, 04/19/10) PMhx/Soc History of Surgery: Yes ( bladder surgery per pt) Anesthesia Reaction: No Hx Neurological Disorder: No Hx Respiratory Disorders: No Hx Cardiac Disorders: No Hx Psychiatric Problems: Yes (anxiety) Hx Miscellaneous Medical Probl: No Hx Alcohol Use: Yes (per pt it has been years) Hx Substance Use: No Hx Tobacco Use: Yes (former smoker ) Smoking Status: Former smoker FmHx Family History: No diabetes Physical Exam Vitals Vital Signs Date Temp Pulse Resp B/P (MAP) Pulse Ox O2 O2 Flow FiO2 Time Delivery Rate 2/7/19 98.2 103 18 128/82 99 23:06 (97) Physical Exam INITIAL VITAL SIGNS: Reviewed by me GENERAL: Awake, alert and oriented x 4, well appearing, nontoxic, speaking in full sentences. No acute distress HEAD: Atraumatic NECK: Supple. No masses. Full range of motion. No meningismus. No midline tenderness. EYES: EOMI. PERRL. THROAT: No tonilar erythema or edema. No exudates. Uvula midline. No kissing tonsils. Left upper posterior molar tooth with dental caries, no erythema or edema, no bleeding or drainage RESPIRATORY: Clear to auscultation bilaterally. Symmetric chest wall rise. No wheezing or rales. No accessory muscle use. CV: Regular rate and rhythm. No murmurs, rubs, or gallops. Results 24 hrs Current Medications Medications Dose Sig/Kourtney Start Time Status Last (Trade) Ordered Route PRN Stop Time Admin Dose Reason Admin Ibuprofen 800 mg ONCE ONCE 12/14/18 12/14/18 (Motrin) PO 01:00 12/14/18 00:53 01:01 Procedures/MDM Patient has dental pain. No signs of emergency. He is given prescription for ibuprofen Inwood and amoxicillin and he plans to follow-up with his dentist tomorrow. Patient counseled regarding my diagnostic impression and care plan. Prior to discharge all questions answered. Pt agrees with treatment plan and understands strict return precautions. Pt is instructed to follow up with primary care provider within 24-48 hours. Precautionary instructions provided including instructions to return to the ER if not improving or for any worsening or changing symptoms or concerns. Departure Diagnosis: Primary Impression: Pain, dental Condition: Stable Patient Instructions: Dental Pain Referrals: [facility] ([facility]) Additional Instructions: Call your primary care doctor TOMORROW for an appointment during the next 1-2 days.See the doctor sooner or return here if your condition worsens before your appointment time. GIULIA ARAUJO PA-C Dec 14, 2018 01:01
[2018-12-14 01:47] VITALS: BP 131/87; PULSE 86; RESP 16
== END 2018-12-14 01:55 | disposition home or self-care (01) ==
LOC: FTE 22:47
DX: K08.89 Other specified disorders of teeth and supporting structures (principal); Z87.891 Personal history of nicotine dependence
CPT/HCPCS: Z7502; Z7610; 99283